=== PATIENT | female | born 2005 | race Hispanic/Latino ===

== ENCOUNTER 2025-04-13 23:20 | Observation (INO) | payer OTHER ==
[~2025-04-13] VITALS: Ht 162.6 cm; Wt 73.3 kg
[2025-04-14] VITALS (8 sets, daily range): BP systolic 98–121; BP diastolic 50–65; TEMP 97.3–98.7; O2SAT 98–100
[2025-04-14] MEDS ORDERED: ISOVUE-370 76% 100 ML VIAL As Ordered ONE (03:40)
[2025-04-14 04:30] LABS: BASO # 0.0 10^3/uL (0.0-0.2); BASO % 0.3 % (0.0-1.0); EOS # 0.1 10^3/uL (0.0-0.5); EOS % 0.4 % (0.0-3.0); LYMPH # 2.3 10^3/uL (1.5-5.0); LYMPH % 17.9 % (24.0-44.0); MONO # 1.1 10^3/uL (0.0-0.8); MONO % 8.3 % (2.0-8.0); NEUTROPHILS # 9.2 10^3/uL (1.5-8.5); NEUTROPHILS % 72.9 % (36.0-66.0); PLATELET COUNT, AUTOMATED 234 10^3/uL (150-450)
[2025-04-14] MEDS: ACETAMINOPHEN *IV* 1,000 MG in IV 1 EA IV ONE (04:35)
[2025-04-14] MEDS: NS (Normal Saline) 0.9% 1,000 ML IV ONE (04:36)
[2025-04-14] MEDS: AMPICILLIN SOD/SULBACTAM SOD 3 GM in DEXTROSE 5% (D5W) MINI-BAG PLU 100 ML IV ONE (04:37)
[2025-04-14 04:55] LABS: C REACTIVE PROTEIN QUANTITATIV 5.16 MG/DL (<1.0)
[2025-04-14 08:33] LABS: HCG, SERUM QUANTITATIVE < 2.6 MIU/ML (<4.2)
[2025-04-14] MEDS ORDERED: MIDAZOLAM INJ 2 MG/2 ML VIAL As Ordered ONE (09:58)
[2025-04-14] MEDS ORDERED: ROCURONIUM BROMIDE 50MG/5ML VIAL As Ordered ONE (09:58)
[2025-04-14] MEDS ORDERED: SUGAMMADEX SODIUM 200 MG/2 ML VIAL As Ordered ONE (09:58)
[2025-04-14] MEDS ORDERED: ONDANSETRON 4MG/2ML VIAL As Ordered ONE (09:58)
[2025-04-14] MEDS ORDERED: dexAMETHasone 4 MG/ML 1 ML VIAL As Ordered ONE (09:58)
[2025-04-14] MEDS ORDERED: LIDOCAINE 2% 100 MG/5 ML SDV (FOR ANES.) As Ordered ONE (09:58)
[2025-04-14] MEDS ORDERED: dexmedeTOMIDine (4 MCG/ML) 200 MCG/50 ML BTL As Ordered ONE (09:58)
[2025-04-14] MEDS: LIDOCAINE W/EPINEPHrine 1% 20 ML VIAL As Ordered ONE (10:14)
[2025-04-14] MEDS: OXYMETAZOLINE 0.05% NASAL SPRAY As Ordered ONE (10:14)
[2025-04-14] MEDS ORDERED: MORPHINE 2 MG/ML 1 ML VIAL IV PRN (10:45)
[2025-04-14] MEDS ORDERED: HYDROMORPHONE HCL 0.5 MG/0.5 ML SYRINGE As Ordered ONE (10:48)
[2025-04-14] MEDS: HYDROMORPHONE HCL 0.5 MG/0.5 ML SYRINGE IV PRN (10:50)
[2025-04-14] MEDS ORDERED: KETOROLAC 30 MG/ML 1 ML VIAL IV PRN (11:50)
[2025-04-14] MEDS: AMPICILLIN SOD/SULBACTAM SOD 3 GM in DEXTROSE 5% (D5W) MINI-BAG PLU 100 ML IV SCH (13:55)
[2025-04-15] MEDS: ONDANSETRON 4MG/2ML VIAL IV PRN (01:10)
[2025-04-15 04:14] VITALS: BP 105/56; TEMP 98.3; O2SAT 99
[2025-04-15 06:20] LABS: PLATELET COUNT, AUTOMATED 229 10^3/uL (150-450)
[2025-04-15 06:38] LABS: ALT/SGPT 18 U/L (7.0-40); AST/SGOT 17 U/L (<34); CALCIUM LEVEL 9.0 MG/DL (8.5-10.1); CARBON DIOXIDE LEVEL 23 MMOL/L (20-31); CHLORIDE LEVEL 106 MMOL/L (98-107); CREATININE FOR GFR 0.60 MG/DL (0.55-1.30); GLOMERULAR FILTRATION RATE > 90.0 (>60); POTASSIUM SERUM 4.1 MMOL/L (3.5-5.1); SODIUM LEVEL 140 MMOL/L (136-145)
[2025-04-15] MEDS ORDERED: ACET1TAB55 PO (07:57)
[2025-04-15] MEDS ORDERED: ENOXAPARIN 40 MG/0.4 ML SYRINGE (J1650 PER 10MG) SC SCH (09:00)
[2025-04-15] MEDS ORDERED: AMOX875T2 PO (09:21)
== END 2025-04-15 09:55 | disposition home or self-care (01) ==
LOC: M ED 23:20 → M SDC 23:21 → M ED 04-14 08:54 → M SDC 04-14 11:35 → M MS4PR 04-14 11:35 → M SDC 04-14 12:19 → M ED INP 04-14 12:20 → M MS4PR 04-14 12:25
PROVIDERS: ADMIT Internal Medicine; ATTEND Internal Medicine
DX: J36 Peritonsillar abscess (principal); J02.0 Streptococcal pharyngitis; Z79.2 Long term (current) use of antibiotics
CPT/HCPCS: 36415; 42700; 70491; 80047; 80053; 83605; 84702; 85025; 85027; 86140; 87040; 87880; 96365; 96366; 96375; 96376; 99285; J0134; J0295; J1100; J1171; J2250; J2405; J3010; Q9967